=== PATIENT | male | born 1995 | race Caucasian/White ===

== ENCOUNTER 2021-10-18 06:42 | Day surgery (SDC) | payer OTHER ==
[~2021-10-18] VITALS: Ht 175.3 cm; Wt 79.8 kg
[2021-10-18] MEDS ORDERED: LIDOCAINE 2% 100MG/5ML SDV (FOR ANES.) As Ordered ONE (07:41)
[2021-10-18] MEDS ORDERED: propofoL 200 MG/20 ML VIAL As Ordered ONE (07:41)
[2021-10-18 08:07] VITALS: BP 116/64
[2021-10-18] MEDS ORDERED: NS 1,000 ML IV ONE (09:35)
== END 2021-10-18 08:22 | disposition home or self-care (01) ==
LOC: M OPP 06:42
PROVIDERS: ATTEND Internal Medicine Gastroenterology
DX: K44.9 Diaphragmatic hernia without obstruction or gangrene (principal); K22.89 Other specified disease of esophagus; K22.70 Barrett's esophagus without dysplasia; K92.0 Hematemesis; F17.220 Nicotine dependence, chewing tobacco, uncomplicated

== ENCOUNTER → 2022-08-27 | Outpatient (CLI) | payer OTHER ==
[~2022-08-27] MED LIST: ISOVUE-300 61% 100ML VIAL ONE; LIDOCAINE 1% MDV 20ML VIAL ONE; PROHANCE 279.3MG/ML 5ML VIAL ONE
== END ==
LOC: M PLAIMG 13:08
PROVIDERS: ATTEND Physician Assistant
DX: M25.311 Other instability, right shoulder (principal); M25.312 Other instability, left shoulder
CPT/HCPCS: 23350; 73223; 76000; A9576; Q9967

== ENCOUNTER → 2022-09-05 | Outpatient (CLI) | payer OTHER ==
[~2022-09-05] MED LIST changes: -ISOVUE-300 61% 100ML VIAL ONE; -LIDOCAINE 1% MDV 20ML VIAL ONE; +PROHANCE 279.3MG/ML 15ML VIAL As Ordered ONE; +PROHANCE 279.3MG/ML 5ML VIAL As Ordered ONE; -PROHANCE 279.3MG/ML 5ML VIAL ONE
== END ==
LOC: M RAD 08:38
PROVIDERS: ATTEND Physician Assistant
DX: S73.192A Other sprain of left hip, initial encounter (principal)
CPT/HCPCS: 73723; A9576

== ENCOUNTER → 2022-09-21 | Outpatient (CLI) | payer OTHER | LOC: M PLAIMG 12:53 | PROVIDERS: ATTEND Physician Assistant | DX: M25.312 Other instability, left shoulder (principal) ==

== ENCOUNTER → 2023-08-12 | Outpatient (REF) | LOC: M PLAIMG 09:58 | PROVIDERS: ATTEND Internal Medicine | DX: M25.512 Pain in left shoulder (principal) ==

== ENCOUNTER → 2024-07-29 | Outpatient (REF) | payer OTHER | LOC: M LABWUC 12:37 | PROVIDERS: ATTEND Physician Assistant | DX: Z76.89 Persons encountering health services in other specified circumstances (principal) ==